=== PATIENT | female | born 1950 | race African-American/Black ===

== ENCOUNTER 2017-11-23 14:10 | Inpatient (IN) ==
[2017-11-23 18:14] LABS: Basophils % 0.3 % (0.0-0.8); Eosinophils # 0.1 10*3/uL (0.0-0.87); Eosinophils % 0.8 % (0.00-10.9); Hematocrit 35.3 VOL% (35.7-47.0); Hemoglobin 11.6 GM/DL (12.0-16.0); Immature Granulocytes % 0.5 %; Immature Granulocytes Absolute 0.04 #; Lymphocytes # 2.6 10*3/uL (1.4-4.0); Lymphocytes % 29.9 % (21.3-54.2); Mean Corpuscular HGB Conc 32.9 GM/DL (32-36); Mean Corpuscular Hemoglobin 27 PG (27-34); Mean Corpuscular Volume 80.8 FL (87-102); Mean Platelet Volume 10.4 FL (9.6-12.0); Monocytes # 0.5 10*3/uL (0.11-0.8); Monocytes % 5.7 % (1.7-12.7); Neutrophils # 5.5 10*3/uL (1.4-7.4); Neutrophils % 62.8 % (38.7-73.9); Platelet Count 323 T/CUMM (130-400); Red Blood Count 4.37 MC/CUMM (3.8-5.5); Red Cell Distribution Width 14.9 % (9.3-17.3); White Blood Count 8.8 T/CUMM (4-12)
[2017-11-23] MEDS ORDERED: SODIUM CHLORIDE 0.9% 1,000 ML IV SCH (18:30)
[2017-11-23 18:32] LABS: Albumin 3.1 G/DL (3.4-5.0); Bilirubin,Total 1.2 MG/DL (0.2-1.0); Calcium 9.1 MG/DL (8.5-10.1); Osmolality,Calculated 279.4 MOS/KG (273-304); Potassium 3.6 MMOL/L (3.5-5.1); Total Protein 8.4 G/DL (6.4-8.3)
[2017-11-23] MEDS ORDERED: DEXTROSE 50% 25 GM/50 ML VIAL IV PRN (18:37)
[2017-11-23] MEDS ORDERED: GLUCAGON 1 MG VIAL IM PRN (18:37)
[2017-11-23] MEDS ORDERED: FLUTICASONE 50 MCG NASAL SPRAY 16 GM BOTTLE BOTH NARES PRN (19:27)
[2017-11-23] MEDS: hydrALAZINE 25 MG TABLET PO SCH (20:24)
[2017-11-23] MEDS: PREGABALIN 50 MG CAPSULE PO SCH (20:25)
[2017-11-23] MEDS: ATORVASTATIN 40 MG TABLET PO SCH (20:26)
[2017-11-23] MEDS: VERAPAMIL 120 MG TABLET PO SCH (20:27)
[2017-11-23] MEDS: VALSARTAN 160 MG TABLET PO SCH (20:27)
[2017-11-23] MEDS: PANTOPRAZOLE 40 MG TABLET PO SCH (20:28)
[2017-11-23] MEDS: ISOSORBIDE MONONITRATE 30 MG TABLET PO SCH (20:28)
[2017-11-23] MEDS: CLOTRIMAZOLE 1% CREAM 15 GM TUBE TOP SCH (20:29)
[2017-11-23] MEDS: CITALOPRAM 20 MG TABLET PO SCH (20:29)
[2017-11-23] MEDS ORDERED: AMITRIPTYLINE 25 MG TABLET PO SCH (21:00)
[2017-11-23] MEDS: CHLORHEXIDINE 0.12% ORAL RINSE 60 ML BOTTLE SWISH/SPIT SCH (21:02)
[2017-11-23] MEDS: CHLORHEXIDINE 4% SOLN 118 ML BOTTLE TOP SCH (22:15)
[2017-11-24] MEDS: CHLORHEXIDINE 4% SOLN 118 ML BOTTLE TOP SCH ×3 (01:20→15:00)
[2017-11-24] MEDS ORDERED: VANCOMYCIN 1,000 MG VIAL ONE (05:20)
[2017-11-24] MEDS ORDERED: PAPAVERINE 60 MG/2 ML VIAL ONE (05:20)
[2017-11-24] MEDS ORDERED: TISSUE ADHESIVE 1 EACH APPLICATOR TOP ONE (05:20)
[2017-11-24] MEDS ORDERED: FAMOTIDINE 20 MG TABLET PO ONE (07:00)
[2017-11-24] MEDS ORDERED: CEFUROXIME INJ 1,500 MG in SYRINGE 1 EACH IV ONE (07:00)
[2017-11-24] MEDS ORDERED: DIAZEPAM 5 MG TABLET PO ONE (07:00)
[2017-11-24] MEDS ORDERED: INSULIN ASPART PROTAMINE/ASPART 70/30 100 UNIT/ML SUBCUT SCH (07:30)
[2017-11-24] MEDS ORDERED: amLODIPine 10 MG TABLET PO SCH (09:00)
[2017-11-24] MEDS ORDERED: SUFentanil 250 MCG/5 ML AMP ONE (10:15)
[2017-11-24] MEDS ORDERED: MIDAZOLAM 10 MG/2 ML VIAL ONE ×2 (10:16→16:24)
[2017-11-24] MEDS: PANTOPRAZOLE 40 MG TABLET PO SCH (10:25)
[2017-11-24] MEDS: VERAPAMIL 120 MG TABLET PO SCH (10:26)
[2017-11-24] MEDS: VALSARTAN 160 MG TABLET PO SCH (10:26)
[2017-11-24] MEDS: hydrALAZINE 25 MG TABLET PO SCH ×2 (10:27→15:00)
[2017-11-24] MEDS: ISOSORBIDE MONONITRATE 30 MG TABLET PO SCH (10:28)
[2017-11-24 12:21] LABS: ABG Base Excess 0.8 MMOL/L (-2.5-2.5); ABG HCO3 25.2 MMOL/L (20-26); ABG Oxygen Saturation 99.9 % (95-100); ABG PCO2 37.6 MM HG (35-48); ABG TCO2 22.5 MMOL/L (23-27); Glucose Heart Surgery 172 MG/DL (74-106); Hemoglobin Heart Surgery 10.4 G/DL (12.0-16.0); Ionized Calcium Arterial 1.17 MMOL/L (1.21-1.46); PCO2 Patient Temp Arterial 37.6 MMHG; Patient Temperature 37 CELCIUS; Potassium Heart/CVR 3.4 MMOL/L (3.5-5.1); Sodium Heart/CVR 143 MMOL/L (135-145)
[2017-11-24] MEDS ORDERED: SODIUM BICARBONATE 50 MEQ/50 ML SYRINGE IV ONE ×2 (12:40→15:25)
[2017-11-24] MEDS ORDERED: CALCIUM CHLORIDE 1,000 MG/10 ML SYRINGE IV ONE (12:41)
[2017-11-24] MEDS ORDERED: EPINEPHrine 1 MG/10 ML SYRINGE ONE (12:41)
[2017-11-24] MEDS: CITALOPRAM 20 MG TABLET PO SCH (13:15)
[2017-11-24] MEDS: CLOTRIMAZOLE 1% CREAM 15 GM TUBE TOP SCH (13:16)
[2017-11-24] MEDS: PREGABALIN 50 MG CAPSULE PO SCH ×2 (13:16→15:00)
[2017-11-24] MEDS: ATORVASTATIN 40 MG TABLET PO SCH (13:16)
[2017-11-24] MEDS: CHLORHEXIDINE 0.12% ORAL RINSE 60 ML BOTTLE SWISH/SPIT SCH ×2 (13:16→21:45)
[2017-11-24 13:28] LABS: Apearance,Urine CLEAR (Clear); Bilirubin,Urine Negative (Negative); Blood, Urine Negative (Negative); Glucose,Urine (UA) Negative (Negative); Hyaline Casts,Urine 2 /LPF (0-3); Ketones,Urine Negative (Negative); Nitrite,Urine Negative (Negative); Protein,Urine Negative; RBC,Urine 1 /HPF (0-4); Squamous Epithelial Cell,Urine Occasional /HPF (0-10); Urine Color Yellow (Yellow); Urine Specific Gravity 1.014 (1.001-1.035); Urine Urobilinogen < 2.0 EU/DL (0.2-1.0); WBC,Urine 1 /HPF (0-6)
[2017-11-24 13:46] LABS: PCO2 Patient Temp Venous 31.6 MM HG; PH Patient Temp Venous 7.503; PO2 Patient Temp Venous 35.4 MM HG; Potassium Heart/CVR 4.4 MMOL/L (3.5-5.1); VBG Base Excess 1.8 MEQ/L (0-4); VBG HCO3 25.8 MEQ/L (24-28); VBG Oxygen Saturation 75.2 %; VBG PCO2 33.2 MMHG (41-51); VBG PH 7.488; VBG PO2 37.9 MMHG (17-40)
[2017-11-24 13:47] LABS: Hematocrit Heart Surgery 17.9 PERCENT (37-47); Hemoglobin Heart Surgery 5.7 G/DL (12.0-16.0)
[2017-11-24 14:16] LABS: Hematocrit Heart Surgery 25.2 PERCENT (37-47); Hemoglobin Heart Surgery 8.1 G/DL (12.0-16.0); PCO2 Patient Temp Venous 36.4 MM HG; PH Patient Temp Venous 7.43; PO2 Patient Temp Venous 53.3 MM HG; VBG Base Excess 0.1 MEQ/L (0-4); VBG HCO3 24.4 MEQ/L (24-28); VBG Oxygen Saturation 88.3 %; VBG PCO2 36.4 MMHG (41-51); VBG PH 7.43; VBG PO2 53.3 MMHG (17-40)
[2017-11-24] MEDS ORDERED: DOBUTamine 500 MG/250 ML PREMIX IV ONE (14:36)
[2017-11-24 15:06] LABS: ABG Base Excess -3.3 MMOL/L (-2.5-2.5); ABG HCO3 21.6 MMOL/L (20-26); ABG Oxygen Saturation 93.7 % (95-100); ABG PCO2 44.3 MM HG (35-48); ABG PH 7.318 (7.35-7.45); ABG PO2 76.1 MM HG (80-95); Glucose Heart Surgery 292 MG/DL (74-106); Hematocrit Heart Surgery 29.2 PERCENT (37-47); Hemoglobin Heart Surgery 9.4 G/DL (12.0-16.0); Ionized Calcium Arterial 1.27 MMOL/L (1.21-1.46); PCO2 Patient Temp Arterial 44.3 MMHG; PH Patient Temp Arterial 7.318; PO2 Patient Temp Arterial 76.1 MM HG; Patient Temperature 37 CELCIUS; Potassium Heart/CVR 3.6 MMOL/L (3.5-5.1); Sodium Heart/CVR 137 MMOL/L (135-145)
[2017-11-24] MEDS ORDERED: methylPREDNISolone SOD SUC 1,000 MG/8 ML VIAL ONE (15:25)
[2017-11-24] MEDS ORDERED: ALBUMIN 25% 25 GM/100 ML VIAL IV ONE (15:25)
[2017-11-24] MEDS ORDERED: DEXTROSE 5% KCL 20 MEQ 20 MEQ/1,000 ML BAG IV ONE (15:25)
[2017-11-24] MEDS ORDERED: PROTAMINE SULFATE 250 MG/25 ML VIAL IV ONE (15:25)
[2017-11-24] MEDS ORDERED: HEPARIN 10,000 UNIT/10 ML VIAL ONE (15:25)
[2017-11-24] MEDS ORDERED: MAGNESIUM SULFATE 1 GM/2 ML VIAL ONE (15:25)
[2017-11-24] MEDS ORDERED: MANNITOL 12.5 GM/50 ML VIAL IV ONE (15:25)
[2017-11-24] MEDS ORDERED: FUROSEMIDE 20 MG/2 ML VIAL ONE (15:26)
[2017-11-24] MEDS ORDERED: PHENYLEPHRINE DRIP 40 MG/250 ML PREMIX IV ONE (15:55)
[2017-11-24] MEDS ORDERED: DEXTROSE 50% 25 GM/50 ML VIAL IV PRN ×2 (15:58)
[2017-11-24] MEDS ORDERED: MAGNESIUM SULF RIDER 2 GM in PREMIX 1 EACH IV PRN (15:58)
[2017-11-24] MEDS ORDERED: ALBUMIN 5% 12.5 GM in PREMIX 1 EACH IV PRN (15:58)
[2017-11-24] MEDS ORDERED: INSULIN REGULAR 100 UNIT/ML IV PRN (15:58)
[2017-11-24] MEDS ORDERED: SODIUM CHLORIDE 0.9% 250 ML IV PRN (15:58)
[2017-11-24] MEDS ORDERED: ACETAMINOPHEN 650 MG SUPP RECTAL PRN (15:58)
[2017-11-24] MEDS ORDERED: MAGNESIUM SULF RIDER 4 GM in PREMIX 1 EACH IV PRN (15:58)
[2017-11-24] MEDS ORDERED: CHLORHEXIDINE 4% SOLN 118 ML BOTTLE TOP PRN (15:58)
[2017-11-24] MEDS ORDERED: MIDAZOLAM 2 MG/2 ML VIAL IV PRN (15:58)
[2017-11-24] MEDS ORDERED: ONDANSETRON 4 MG/2 ML VIAL IV PRN (15:58)
[2017-11-24] MEDS ORDERED: CALCIUM CHLORIDE 1,000 MG/10 ML SYRINGE IV PRN (15:58)
[2017-11-24] MEDS ORDERED: PHENYLEPHRINE DRIP 40 MG/250 ML PREMIX IV PRN (16:00)
[2017-11-24] MEDS: SODIUM CHLORIDE 0.45% 1,000 ML IV SCH ×2 (16:00)
[2017-11-24] MEDS ORDERED: CALCIUM CHLORIDE 1,000 MG/10 ML VIAL IV ONE (16:23)
[2017-11-24] MEDS ORDERED: SEVOFLURANE 1 UNIT/15 MINUTE INH ONE (16:23)
[2017-11-24] MEDS ORDERED: ePHEDrine 50 MG/ML AMP ONE (16:24)
[2017-11-24] MEDS ORDERED: PHENYLEPHRINE 10 MG/1 ML VIAL IV ONE (16:24)
[2017-11-24] MEDS ORDERED: VECURONIUM 10 MG VIAL IV ONE (16:24)
[2017-11-24] MEDS ORDERED: ETOMIDATE 40 MG/20 ML VIAL IV ONE (16:24)
[2017-11-24] MEDS ORDERED: LACTATED RINGERS 1,000 ML IV ONE (16:24)
[2017-11-24] MEDS ORDERED: SODIUM CHLORIDE 0.9% 100 ML IV ONE (16:25)
[2017-11-24] MEDS ORDERED: SODIUM CHLORIDE 0.9% 1,000 ML IV ONE (16:25)
[2017-11-24] MEDS ORDERED: SODIUM CHLORIDE 0.9% 250 ML IV ONE (16:25)
[2017-11-24 16:36] LABS: ABG Base Excess -2.9 MMOL/L (-2.5-2.5); ABG Oxygen Saturation 94.9 % (95-100); ABG PCO2 36.7 MM HG (35-48); ABG PH 7.381 (7.35-7.45); ABG PO2 76.4 MM HG (80-95); ABG TCO2 19.6 MMOL/L (23-27); Glucose Heart Surgery 225 MG/DL (74-106); Hematocrit Heart Surgery 33.2 PERCENT (37-47); Hemoglobin Heart Surgery 10.8 G/DL (12.0-16.0); Potassium Heart/CVR 3.4 MMOL/L (3.5-5.1)
[2017-11-24 16:41] LABS: Basophils % 0.2 % (0.0-0.8); Eosinophils # 0.1 10*3/uL (0.0-0.87); Eosinophils % 0.8 % (0.00-10.9); Hematocrit 30.1 VOL% (35.7-47.0); Hemoglobin 10.2 GM/DL (12.0-16.0); Immature Granulocytes % 1.2 %; Immature Granulocytes Absolute 0.21 #; Lymphocytes # 2.8 10*3/uL (1.4-4.0); Lymphocytes % 16.5 % (21.3-54.2); Mean Corpuscular HGB Conc 33.9 GM/DL (32-36); Mean Corpuscular Hemoglobin 28 PG (27-34); Mean Corpuscular Volume 82.7 FL (87-102); Mean Platelet Volume 10.8 FL (9.6-12.0); Monocytes # 0.8 10*3/uL (0.11-0.8); Monocytes % 4.4 % (1.7-12.7); Neutrophils # 13.2 10*3/uL (1.4-7.4); Neutrophils % 76.9 % (38.7-73.9); Platelet Count 203 T/CUMM (130-400); Red Blood Count 3.64 MC/CUMM (3.8-5.5); Red Cell Distribution Width 15.6 % (9.3-17.3); White Blood Count 17.1 T/CUMM (4-12)
[2017-11-24 16:51] LABS: Blood Urea Nitrogen 12 MG/DL (7-18); Calcium 7.6 MG/DL (8.5-10.1); Glucose 215 MG/DL (74-106); Osmolality,Calculated 288.1 MOS/KG (273-304); Potassium 3.5 MMOL/L (3.5-5.1); Sodium 142 MMOL/L (136-145)
[2017-11-24 16:55] LABS: INR 1.1; Lactic Acid 3.9 MMOL/L (0.4-2.0); PT Patient Result 11.7 SECS; Partial Thromboplastin Time 28.9 SECS (0-40)
[2017-11-24] MEDS ORDERED: NITROGLYCERIN DRIP 50 MG/250 ML BOTTLE IV PRN (17:40)
[2017-11-24] MEDS ORDERED: NITROGLYCERIN DRIP 50 MG/250 ML BOTTLE IV ONE (17:45)
[2017-11-24 18:01] LABS: Band Neutrophils 15 % (0-10); Eosinophils 1 % (0-10); Lymphocytes 17 % (20-55); Segmented Neutrophils 63 % (50-85); Total Cells Counted 100
[2017-11-24 18:02] LABS: Hypochromasia 2+; Platelet Estimate Normal
[2017-11-24] MEDS: INSULIN REGULAR DRIP 100 ML IV SCH (18:05)
[2017-11-24] MEDS: POTASSIUM CHLORIDE RIDER 20 MEQ in PREMIX 1 EACH IV PRN (18:20)
[2017-11-24] MEDS: POTASSIUM CHLORIDE RIDER 10 MEQ in PREMIX 1 EACH IV PRN (19:00)
[2017-11-24] MEDS: MORPHINE 4 MG/1 ML VIAL IV PRN (19:43)
[2017-11-25] MEDS: CEFUROXIME INJ 1,500 MG in SYRINGE 1 EACH IV SCH ×3 (00:24→23:22)
[2017-11-25] MEDS: INSULIN REGULAR DRIP 100 ML IV SCH (00:38)
[2017-11-25] MEDS ORDERED: ASPIRIN 325 MG TABLET PO ONE (02:00)
[2017-11-25 02:18] LABS: ABG Base Excess -2.1 MMOL/L (-2.5-2.5); ABG HCO3 22.6 MMOL/L (20-26); ABG Oxygen Saturation 95.7 % (95-100); ABG PCO2 41.9 MM HG (35-48); ABG PH 7.354 (7.35-7.45); ABG PO2 81.7 MM HG (80-95); ABG TCO2 21.1 MMOL/L (23-27); Glucose Heart Surgery 151 MG/DL (74-106); Hematocrit Heart Surgery 33.3 PERCENT (37-47); Hemoglobin Heart Surgery 10.8 G/DL (12.0-16.0); Potassium Heart/CVR 3.5 MMOL/L (3.5-5.1)
[2017-11-25] MEDS: POTASSIUM CHLORIDE RIDER 20 MEQ in PREMIX 1 EACH IV PRN ×2 (02:58→03:37)
[2017-11-25] MEDS: MORPHINE 10 MG/1 ML VIAL IV PRN ×3 (03:26→22:25)
[2017-11-25 04:36] LABS: Basophils % 0.2 % (0.0-0.8); Hematocrit 32.2 VOL% (35.7-47.0); Hemoglobin 10.5 GM/DL (12.0-16.0); Immature Granulocytes % 0.5 %; Lymphocytes # 1.6 10*3/uL (1.4-4.0); Lymphocytes % 8.7 % (21.3-54.2); Mean Corpuscular HGB Conc 32.6 GM/DL (32-36); Mean Corpuscular Hemoglobin 27 PG (27-34); Mean Corpuscular Volume 84.1 FL (87-102); Mean Platelet Volume 10.8 FL (9.6-12.0); Monocytes # 0.7 10*3/uL (0.11-0.8); Monocytes % 3.9 % (1.7-12.7); Neutrophils # 16.2 10*3/uL (1.4-7.4); Neutrophils % 86.7 % (38.7-73.9); Platelet Count 215 T/CUMM (130-400); Red Blood Count 3.83 MC/CUMM (3.8-5.5); Red Cell Distribution Width 15.4 % (9.3-17.3); White Blood Count 18.7 T/CUMM (4-12)
[2017-11-25 04:52] LABS: Calcium 7.9 MG/DL (8.5-10.1); Osmolality,Calculated 280.1 MOS/KG (273-304); Potassium 4.7 MMOL/L (3.5-5.1)
[2017-11-25] MEDS: POTASSIUM CHLORIDE RIDER 10 MEQ in PREMIX 1 EACH IV PRN (05:24)
[2017-11-25] MEDS ORDERED: FLUTICASONE 50 MCG NASAL SPRAY 16 GM BOTTLE BOTH NARES PRN (06:50)
[2017-11-25] MEDS: SODIUM CHLORIDE 0.45% 1,000 ML IV SCH ×2 (07:17→12:26)
[2017-11-25] MEDS: MORPHINE 4 MG/1 ML VIAL IV PRN (07:28)
[2017-11-25] MEDS: CLOTRIMAZOLE 1% CREAM 15 GM TUBE TOP SCH ×2 (08:53→20:42)
[2017-11-25] MEDS: PREGABALIN 50 MG CAPSULE PO SCH ×3 (08:54→20:15)
[2017-11-25] MEDS: CLOPIDOGREL 75 MG TABLET PO SCH (08:54)
[2017-11-25] MEDS: CITALOPRAM 20 MG TABLET PO SCH (08:54)
[2017-11-25] MEDS: CHLORHEXIDINE 0.12% ORAL RINSE 60 ML BOTTLE SWISH/SPIT SCH ×2 (08:55→20:43)
[2017-11-25] MEDS: INSULIN REGULAR 100 UNIT/ML SUBCUT SCH ×4 (08:59→20:15)
[2017-11-25] MEDS ORDERED: LABETALOL 200 MG TABLET PO ONE (15:07)
[2017-11-25] MEDS: LOSARTAN 50 MG TABLET PO SCH (15:22)
[2017-11-25] MEDS: LABETALOL 200 MG TABLET PO SCH ×2 (15:22→20:15)
[2017-11-25] MEDS ORDERED: LOSARTAN 50 MG TABLET PO SCH (15:30)
[2017-11-25] MEDS: ATORVASTATIN 40 MG TABLET PO SCH ×2 (16:14→20:15)
[2017-11-25] MEDS: ASPIRIN EC 325 MG TABLET PO SCH (16:15)
[2017-11-25] MEDS: FUROSEMIDE 40 MG TABLET PO SCH (16:15)
[2017-11-25] MEDS ORDERED: hydrALAZINE 20 MG/1 ML VIAL IV ONE (16:42)
[2017-11-25] MEDS: AMITRIPTYLINE 25 MG TABLET PO SCH (20:15)
[2017-11-26] MEDS: INSULIN REGULAR 100 UNIT/ML SUBCUT SCH ×7 (00:01→23:20)
[2017-11-26 04:46] LABS: Basophils % 0.1 % (0.0-0.8); Hematocrit 31.7 VOL% (35.7-47.0); Hemoglobin 10.4 GM/DL (12.0-16.0); Immature Granulocytes % 1.3 %; Immature Granulocytes Absolute 0.32 #; Lymphocytes # 1.6 10*3/uL (1.4-4.0); Lymphocytes % 6.8 % (21.3-54.2); Mean Corpuscular HGB Conc 32.8 GM/DL (32-36); Mean Corpuscular Hemoglobin 28 PG (27-34); Mean Corpuscular Volume 85.4 FL (87-102); Mean Platelet Volume 10.8 FL (9.6-12.0); Monocytes # 2.2 10*3/uL (0.11-0.8); Monocytes % 9.4 % (1.7-12.7); Neutrophils # 19.6 10*3/uL (1.4-7.4); Neutrophils % 82.4 % (38.7-73.9); Platelet Count 229 T/CUMM (130-400); Red Blood Count 3.71 MC/CUMM (3.8-5.5); Red Cell Distribution Width 16.1 % (9.3-17.3); White Blood Count 23.7 T/CUMM (4-12)
[2017-11-26] MEDS: MORPHINE 10 MG/1 ML VIAL IV PRN (05:00)
[2017-11-26 05:04] LABS: Calcium 7.8 MG/DL (8.5-10.1); Osmolality,Calculated 283.4 MOS/KG (273-304)
[2017-11-26 07:40] LABS: Band Neutrophils 1 % (0-10); Hypochromasia 1+; Lymphocytes 9 % (20-55); Macrocytosis 1+; Platelet Estimate Adequate; Segmented Neutrophils 85 % (50-85); Target Cells Slight; Total Cells Counted 100
[2017-11-26] MEDS: PIPERACILLIN/TAZOBACTAM 3,375 MG in SODIUM CHLORIDE 0.9% 100 ML IV SCH ×2 (09:27→17:49)
[2017-11-26] MEDS ORDERED: LACTATED RINGERS 500 ML IV ONE (10:23)
[2017-11-26] MEDS ORDERED: CALCIUM GLUCONATE 1,000 MG in SODIUM CHLORIDE 0.9% 100 ML IV ONE (11:00)
[2017-11-26] MEDS: CITALOPRAM 20 MG TABLET PO SCH (11:34)
[2017-11-26] MEDS: ASPIRIN EC 325 MG TABLET PO SCH (11:34)
[2017-11-26] MEDS: CLOPIDOGREL 75 MG TABLET PO SCH (11:35)
[2017-11-26] MEDS: LABETALOL 200 MG TABLET PO SCH ×3 (11:35→21:19)
[2017-11-26] MEDS: FUROSEMIDE 40 MG TABLET PO SCH (11:35)
[2017-11-26] MEDS: LOSARTAN 50 MG TABLET PO SCH (11:35)
[2017-11-26] MEDS: PREGABALIN 50 MG CAPSULE PO SCH ×3 (13:25→21:10)
[2017-11-26] MEDS: CHLORHEXIDINE 0.12% ORAL RINSE 60 ML BOTTLE SWISH/SPIT SCH ×2 (13:38→21:08)
[2017-11-26] MEDS: CLOTRIMAZOLE 1% CREAM 15 GM TUBE TOP SCH ×2 (13:38→21:08)
[2017-11-26 13:44] LABS: Apearance,Urine CLOUDY (Clear); Bilirubin,Urine Negative (Negative); Blood, Urine Large mg/dL (Negative); Glucose,Urine (UA) Negative (Negative); Hyaline Casts,Urine 36 /LPF (0-3); Ketones,Urine Negative (Negative); Mucus,Urine Many /LPF (Occasional); Nitrite,Urine Negative (Negative); Protein,Urine 30 MG/DL; RBC,Urine 370 /HPF (0-4); Squamous Epithelial Cell,Urine Occasional /HPF (0-10); Urine Color Yellow (Yellow); Urine Urobilinogen < 2.0 EU/DL (0.2-1.0); WBC,Urine 24 /HPF (0-6)
[2017-11-26] MEDS: ATORVASTATIN 40 MG TABLET PO SCH (21:08)
[2017-11-26] MEDS: AMITRIPTYLINE 25 MG TABLET PO SCH (21:08)
[2017-11-26] MEDS: SODIUM CHLORIDE 0.45% 1,000 ML IV SCH (22:40)
[2017-11-27] MEDS: INSULIN REGULAR 100 UNIT/ML SUBCUT SCH ×6 (03:43→23:41)
[2017-11-27 07:25] LABS: Basophils % 0.1 % (0.0-0.8); Eosinophils % 0.1 % (0.00-10.9); Hematocrit 29.5 VOL% (35.7-47.0); Hemoglobin 9.9 GM/DL (12.0-16.0); Immature Granulocytes % 0.9 %; Immature Granulocytes Absolute 0.16 #; Lymphocytes # 2.6 10*3/uL (1.4-4.0); Lymphocytes % 14.8 % (21.3-54.2); Mean Corpuscular HGB Conc 33.6 GM/DL (32-36); Mean Corpuscular Hemoglobin 28 PG (27-34); Mean Platelet Volume 10.4 FL (9.6-12.0); Monocytes # 1.6 10*3/uL (0.11-0.8); Monocytes % 9.2 % (1.7-12.7); Neutrophils # 13.1 10*3/uL (1.4-7.4); Neutrophils % 74.9 % (38.7-73.9); Platelet Count 230 T/CUMM (130-400); Red Blood Count 3.51 MC/CUMM (3.8-5.5); Red Cell Distribution Width 16.3 % (9.3-17.3); White Blood Count 17.5 T/CUMM (4-12)
[2017-11-27] MEDS: PIPERACILLIN/TAZOBACTAM 3,375 MG in SODIUM CHLORIDE 0.9% 100 ML IV SCH ×3 (07:53→23:50)
[2017-11-27 08:01] LABS: Calcium 8.2 MG/DL (8.5-10.1); Osmolality,Calculated 292.1 MOS/KG (273-304); Potassium 4.9 MMOL/L (3.5-5.1)
[2017-11-27 08:05] LABS: Prealbumin 12.3 MG/DL (20-40)
[2017-11-27] MEDS ORDERED: FUROSEMIDE 40 MG/4 ML VIAL IV ONE (09:17)
[2017-11-27] MEDS: FUROSEMIDE 40 MG TABLET PO SCH (09:36)
[2017-11-27] MEDS: CITALOPRAM 20 MG TABLET PO SCH (09:36)
[2017-11-27] MEDS: LOSARTAN 50 MG TABLET PO SCH (09:36)
[2017-11-27] MEDS: CLOPIDOGREL 75 MG TABLET PO SCH (09:36)
[2017-11-27] MEDS: ASPIRIN EC 325 MG TABLET PO SCH (09:36)
[2017-11-27] MEDS: LABETALOL 200 MG TABLET PO SCH ×2 (09:37→20:11)
[2017-11-27] MEDS: PREGABALIN 50 MG CAPSULE PO SCH ×3 (09:44→20:10)
[2017-11-27] MEDS: CLOTRIMAZOLE 1% CREAM 15 GM TUBE TOP SCH ×2 (09:45→20:10)
[2017-11-27] MEDS: CHLORHEXIDINE 0.12% ORAL RINSE 60 ML BOTTLE SWISH/SPIT SCH ×2 (12:58→20:10)
[2017-11-27] MEDS: glipiZIDE 10 MG TABLET PO SCH (15:34)
[2017-11-27] MEDS: SODIUM CHLORIDE 0.45% 1,000 ML IV SCH (16:52)
[2017-11-27] MEDS: ATORVASTATIN 40 MG TABLET PO SCH (20:10)
[2017-11-27] MEDS: AMITRIPTYLINE 25 MG TABLET PO SCH (20:10)
[2017-11-28] MEDS: INSULIN REGULAR 100 UNIT/ML SUBCUT SCH ×6 (03:33→23:18)
[2017-11-28 03:54] LABS: Basophils % 0.1 % (0.0-0.8); Eosinophils # 0.2 10*3/uL (0.0-0.87); Eosinophils % 1.3 % (0.00-10.9); Hematocrit 32.6 VOL% (35.7-47.0); Hemoglobin 10.4 GM/DL (12.0-16.0); Immature Granulocytes % 0.7 %; Immature Granulocytes Absolute 0.11 #; Lymphocytes # 4.1 10*3/uL (1.4-4.0); Lymphocytes % 25.7 % (21.3-54.2); Mean Corpuscular HGB Conc 31.9 GM/DL (32-36); Mean Corpuscular Hemoglobin 28 PG (27-34); Mean Corpuscular Volume 86.9 FL (87-102); Mean Platelet Volume 10.7 FL (9.6-12.0); Monocytes # 1.5 10*3/uL (0.11-0.8); Monocytes % 9.6 % (1.7-12.7); Neutrophils # 9.9 10*3/uL (1.4-7.4); Neutrophils % 62.6 % (38.7-73.9); Platelet Count 259 T/CUMM (130-400); Red Blood Count 3.75 MC/CUMM (3.8-5.5); White Blood Count 15.9 T/CUMM (4-12)
[2017-11-28 04:17] LABS: Calcium 8.3 MG/DL (8.5-10.1); Osmolality,Calculated 287.3 MOS/KG (273-304); Potassium 4.3 MMOL/L (3.5-5.1)
[2017-11-28] MEDS: PIPERACILLIN/TAZOBACTAM 3,375 MG in SODIUM CHLORIDE 0.9% 100 ML IV SCH ×3 (07:39→23:19)
[2017-11-28] MEDS: glipiZIDE 10 MG TABLET PO SCH (09:14)
[2017-11-28] MEDS: PREGABALIN 50 MG CAPSULE PO SCH ×3 (09:14→20:56)
[2017-11-28] MEDS: FUROSEMIDE 40 MG TABLET PO SCH (09:15)
[2017-11-28] MEDS: CLOPIDOGREL 75 MG TABLET PO SCH (09:15)
[2017-11-28] MEDS: ASPIRIN EC 325 MG TABLET PO SCH (09:15)
[2017-11-28] MEDS: CITALOPRAM 20 MG TABLET PO SCH (09:15)
[2017-11-28] MEDS: LABETALOL 200 MG TABLET PO SCH ×2 (11:03→20:57)
[2017-11-28] MEDS: LOSARTAN 50 MG TABLET PO SCH (11:03)
[2017-11-28] MEDS: CLOTRIMAZOLE 1% CREAM 15 GM TUBE TOP SCH ×2 (11:32→20:57)
[2017-11-28] MEDS: amLODIPine 5 MG TABLET PO SCH (11:32)
[2017-11-28] MEDS: CHLORHEXIDINE 0.12% ORAL RINSE 60 ML BOTTLE SWISH/SPIT SCH ×2 (11:32→20:57)
[2017-11-28] MEDS: SODIUM CHLORIDE 0.45% 1,000 ML IV SCH (19:40)
[2017-11-28] MEDS: AMITRIPTYLINE 25 MG TABLET PO SCH (20:56)
[2017-11-28] MEDS: ATORVASTATIN 40 MG TABLET PO SCH (20:56)
[2017-11-29] MEDS: INSULIN REGULAR 100 UNIT/ML SUBCUT SCH ×6 (03:25→23:12)
[2017-11-29 03:51] LABS: Basophils % 0.2 % (0.0-0.8); Eosinophils # 0.5 10*3/uL (0.0-0.87); Eosinophils % 3.1 % (0.00-10.9); Hematocrit 33.7 VOL% (35.7-47.0); Hemoglobin 10.8 GM/DL (12.0-16.0); Immature Granulocytes % 0.8 %; Immature Granulocytes Absolute 0.14 #; Lymphocytes # 4.1 10*3/uL (1.4-4.0); Lymphocytes % 23.7 % (21.3-54.2); Mean Corpuscular Hemoglobin 28 PG (27-34); Mean Corpuscular Volume 86.2 FL (87-102); Mean Platelet Volume 10.5 FL (9.6-12.0); Monocytes # 1.9 10*3/uL (0.11-0.8); Monocytes % 10.8 % (1.7-12.7); Neutrophils # 10.7 10*3/uL (1.4-7.4); Neutrophils % 61.4 % (38.7-73.9); Platelet Count 294 T/CUMM (130-400); Red Blood Count 3.91 MC/CUMM (3.8-5.5); Red Cell Distribution Width 15.6 % (9.3-17.3); White Blood Count 17.4 T/CUMM (4-12)
[2017-11-29 04:01] LABS: Calcium 9.5 MG/DL (8.5-10.1); Osmolality,Calculated 287.5 MOS/KG (273-304); Potassium 4.5 MMOL/L (3.5-5.1)
[2017-11-29] MEDS: PIPERACILLIN/TAZOBACTAM 3,375 MG in SODIUM CHLORIDE 0.9% 100 ML IV SCH ×3 (08:08→23:38)
[2017-11-29] MEDS: LOSARTAN 50 MG TABLET PO SCH (09:27)
[2017-11-29] MEDS: LABETALOL 200 MG TABLET PO SCH (09:28)
[2017-11-29] MEDS: PREGABALIN 50 MG CAPSULE PO SCH ×3 (09:34→20:01)
[2017-11-29] MEDS: CLOPIDOGREL 75 MG TABLET PO SCH (09:35)
[2017-11-29] MEDS: glipiZIDE 10 MG TABLET PO SCH (09:35)
[2017-11-29] MEDS: ASPIRIN EC 325 MG TABLET PO SCH (09:35)
[2017-11-29] MEDS: FUROSEMIDE 40 MG TABLET PO SCH (09:35)
[2017-11-29] MEDS: amLODIPine 5 MG TABLET PO SCH (09:35)
[2017-11-29] MEDS: CITALOPRAM 20 MG TABLET PO SCH (09:35)
[2017-11-29] MEDS: CLOTRIMAZOLE 1% CREAM 15 GM TUBE TOP SCH ×2 (09:37→20:02)
[2017-11-29] MEDS: CHLORHEXIDINE 0.12% ORAL RINSE 60 ML BOTTLE SWISH/SPIT SCH ×2 (09:56→20:02)
[2017-11-29] MEDS: SODIUM CHLORIDE 0.45% 1,000 ML IV SCH (12:03)
[2017-11-29] MEDS ORDERED: BISACODYL 5 MG TABLET PO PRN (12:11)
[2017-11-29] MEDS: DOCUSATE SODIUM 100 MG CAPSULE PO SCH (12:36)
[2017-11-29] MEDS ORDERED: LABETALOL 100 MG TABLET PO SCH (19:30)
[2017-11-29] MEDS: AMITRIPTYLINE 25 MG TABLET PO SCH (20:01)
[2017-11-29] MEDS: ATORVASTATIN 40 MG TABLET PO SCH (20:01)
[2017-11-30 03:46] LABS: Basophils % 0.2 % (0.0-0.8); Eosinophils # 0.5 10*3/uL (0.0-0.87); Eosinophils % 2.1 % (0.00-10.9); Hematocrit 33.6 VOL% (35.7-47.0); Hemoglobin 10.9 GM/DL (12.0-16.0); Immature Granulocytes % 0.7 %; Immature Granulocytes Absolute 0.16 #; Lymphocytes # 4.9 10*3/uL (1.4-4.0); Lymphocytes % 22.7 % (21.3-54.2); Mean Corpuscular HGB Conc 32.4 GM/DL (32-36); Mean Corpuscular Hemoglobin 28 PG (27-34); Mean Corpuscular Volume 85.1 FL (87-102); Mean Platelet Volume 10.3 FL (9.6-12.0); Monocytes # 2.1 10*3/uL (0.11-0.8); Monocytes % 9.6 % (1.7-12.7); Neutrophils # 13.9 10*3/uL (1.4-7.4); Neutrophils % 64.7 % (38.7-73.9); Platelet Count 328 T/CUMM (130-400); Red Blood Count 3.95 MC/CUMM (3.8-5.5); Red Cell Distribution Width 15.2 % (9.3-17.3); White Blood Count 21.5 T/CUMM (4-12)
[2017-11-30] MEDS: INSULIN REGULAR 100 UNIT/ML SUBCUT SCH ×4 (04:01→16:09)
[2017-11-30 04:16] LABS: Osmolality,Calculated 285.4 MOS/KG (273-304); Potassium 4.3 MMOL/L (3.5-5.1)
[2017-11-30 05:13] LABS: Atypical Lymphocytes Few; Platelet Estimate Normal
[2017-11-30] MEDS: PIPERACILLIN/TAZOBACTAM 3,375 MG in SODIUM CHLORIDE 0.9% 100 ML IV SCH (08:50)
[2017-11-30] MEDS: LOSARTAN 50 MG TABLET PO SCH (09:07)
[2017-11-30] MEDS: PREGABALIN 50 MG CAPSULE PO SCH ×2 (09:17→14:46)
[2017-11-30] MEDS: CITALOPRAM 20 MG TABLET PO SCH (09:18)
[2017-11-30] MEDS: glipiZIDE 10 MG TABLET PO SCH (09:18)
[2017-11-30] MEDS: ASPIRIN EC 325 MG TABLET PO SCH (09:18)
[2017-11-30] MEDS: CLOPIDOGREL 75 MG TABLET PO SCH (09:18)
[2017-11-30] MEDS: DOCUSATE SODIUM 100 MG CAPSULE PO SCH (09:18)
[2017-11-30] MEDS: FUROSEMIDE 40 MG TABLET PO SCH (09:18)
[2017-11-30] MEDS: CLOTRIMAZOLE 1% CREAM 15 GM TUBE TOP SCH (09:19)
[2017-11-30] MEDS: CHLORHEXIDINE 0.12% ORAL RINSE 60 ML BOTTLE SWISH/SPIT SCH (09:21)
[2017-11-30] MEDS ORDERED: FUROSEMIDE 20 MG TABLET PO SCH (11:06)
[2017-11-30] MEDS ORDERED: ATENOLOL 25 MG TABLET PO SCH (11:30)
[2017-11-30 18:10] VITALS: BP 155/65
== END 2017-11-30 18:00 | DRG 235 ==
LOC: N.CVR 16:50 → N.ICU 11-24 01:38 → N.CVR 11-24 11:21 → N.ICU 11-25 08:49
PROVIDERS: ADMIT Thoracic Surgery (Cardiothoracic Vascular Surgery); ATTEND Thoracic Surgery (Cardiothoracic Vascular Surgery)